=== PATIENT | male | born 1980 | race Hispanic/Latino ===

== ENCOUNTER 2024-09-17 08:17 | Day surgery (SDC) | payer SELFPAY ==
[2024-09-13 12:52] VITALS: BP 147/87; PULSE 94; RESP 13; TEMP 98.2
[2024-09-13 12:55] LABS: IMMATURE GRANULOCYTE ABSOLUTE 0.02 K/uL (0-1); NUCLEATED RED BLOOD CELLS 0.0 % (0.0-0.19); PLATELET COUNT (AUTO) 244 K/uL (130-400); RED BLOOD CELL COUNT(AUTO) 5.63 MIL/uL (4.50-6.20); RED CELL DISTRIBUTION WIDTH 13.2 % (11.0-15.5); WHITE BLOOD COUNT (AUTO) 10.0 K/uL (4.8-10.8)
[2024-09-13 13:03] LABS: CREATININE 1.2 mg/dL (0.5-1.3); GLOMERULAR FILTR. RATE CALC 76.0 mL/min (>90); GLUCOSE,RANDOM 107.0 mg/dL (70-105); SODIUM SERUM 138.0 mmol/L (136-145); UREA NITROGEN, BLOOD 13.0 mg/dL (7-18)
[2024-09-13 13:04] LABS: INR 0.99 (0.85-1.15)
[2024-09-17] VITALS (17 sets, daily range): BP systolic 99–153; BP diastolic 64–99; PULSE 76–104; RESP 14–22; TEMP 97.7–98.2
[~2024-09-17] VITALS: Ht 172.7 cm; Wt 99.7 kg
[2024-09-17] MEDS: 0.9%NACL 1000ML 1,000 ML IV ONE (09:44)
[2024-09-17] MEDS ORDERED: NEOSTIGMINE METHYLSULFATE 1MG/ML IV ONE (10:35)
[2024-09-17] MEDS ORDERED: GLYCOPYRROLATE 0.2 MG/ML 5 ML VIAL ONE (10:35)
[2024-09-17] MEDS ORDERED: LIDOCAINE PF 100MG/5ML (2%) SYRINGE 5ML ONE (10:35)
[2024-09-17] MEDS ORDERED: MIDAZOLAM HCL 1 MG/ML 2ML VIAL ONE (10:36)
[2024-09-17] MEDS ORDERED: SUCCINYLCHOLINE CHLORIDE 20 MG/ML 10 ML VIAL ONE (11:20)
--- NOTE | 2024-09-17 12:52 | OP ---
Operative Note: DATE OF PROCEDURE: 09/17/24 SURGEON: TORI SU MD SYSTEM OPERATOR: [] ANESTHESIA: [] General ANESTHESIOLOGIST/USED [employer]: [] PREOPERATIVE DIAGNOSIS: [] Right inguinal hernia POSTOPERATIVE DIAGNOSIS: [] The same SYNOPSIS: [] PROCEDURE: [] Robotic right inguinal hernia repair ESTIMATED BLOOD LOSS: [] Minimal INDICATIONS: [] DESCRIPTION OF PROCEDURE: []With the patient prepped in usual fashion and a Bonilla catheter placed we inserted the Veress needle in the left upper quadrant abdomen insufflated. Supraumbilical incision was created and a millimeter da Last trocar was inserted. Under direct vision I remove the needle and I saw that the needle just grazed small bowel. There was no perforation but I decided to place a suture into that area. I placed a supraumbilical the Last trocar and two in the both side of the abdomen under direct vision. I placed a 5 mm trocar in the right upper quadrant. I then identified the area with a needle farideh of the bowel and I placed a [id number] suture using the endo Stitch. This completely protected that area in case that there was any injury and there was no narrowing of the bowel. Then we placed the patient in Trendelenburg and I docked the robot. I went to the console and observe a right inguinal hernia. There was significant amount of omentum into the hernia and I had to reduce all this context from the hernia. This seems to be of the indirect type. Using cautery I scored the peritoneum and I brought him down bluntly. I exposed the Clay's ligament and the indirect area I reduce a large hernia sac preserving the spermatic cords and visualizing the vas deferens and spermatic cords. The hernia was reduced without any problems. After observing the myop ectineal line and the Clay's ligament I placed a 3 D MAX MId mid mesh on the right side. This was a large one. I placed it over the Clay's ligament covering couple centimeters below and the indirect space. The sac with the lipoma was placed over the mesh. The hernia was very large. I then closed the peritoneum with a 2 oh V-Loc. No anchoring of the mesh was necessary. We did a closure continues and dropped the pressure to 8 cm. After this was done I remove the needle and I remove all the trochars under direct vision. I went to look at the area of suture of the bowel and everything looks without any problem. The skin was closed with 4-0 Monocryl and Dermabond. We placed 20 cc TORI SU MD Sep 17, 2024 12:52
[2024-09-17] MEDS: RACEPINEPHRINE HCL 2.25% 0.5 ML NEB SOLN ONE (13:22)
[2024-09-17] MEDS: SODIUM CHLORIDE 3% FOR INHALATION 4 ML/AMP VIAL.NEB IH ONE (13:22)
== END 2024-09-17 14:40 | disposition home or self-care (01) ==
LOC: DAH 08:17
PROVIDERS: ATTEND Surgery
DX: K40.90 Unilateral inguinal hernia, without obstruction or gangrene, not specified as recurrent (principal); E11.9 Type 2 diabetes mellitus without complications; E66.9 Obesity, unspecified; Z68.32 Body mass index [BMI] 32.0-32.9, adult; Z98.890 Other specified postprocedural states; Z79.01 Long term (current) use of anticoagulants; Z79.899 Other long term (current) drug therapy
CPT/HCPCS: 80048; 85025; 85610; 85730; 36415; 49650; 82948 ×2; 94640; A6260; A4663; J7120; A4344; A4215 ×2; J3010 ×2; J1100; J0330; J7030; J0665 ×2; J3490 ×2; J2003; J2250; J2704; J2405; J2710; J0690; A4649; C1781; A4213; A4222; A4221; A4216; A4450; A4223 ×2; A4600; S2900